=== PATIENT | male | born 1975 | race Caucasian/White ===

== ENCOUNTER → 2016-12-01 | Outpatient (CLI) | payer OTHER ==
--- NOTE | 2016-12-01 11:48 | US ---
EXAMINATION: Right upper quadrant ultrasound HISTORY: Pain COMPARISON: None TECHNIQUE: Grayscale and color Doppler images obtained of the right upper quadrant. FINDINGS: The visualized pancreas appears normal. The liver is normal in contour, echogenicity, and size without a focal hepatic mass. The gallbladder wall thickness is normal. No pericholecystic flui d or shadowing gallstones. The common bile duct measures 3 mm. The right kidney measures 10.5 cm portia e-to-pole without evidence of hydronephrosis. Sonographic Sebastian sign is negative. IMPRESSION: Unremarkable right upper quadrant ultrasound.
--- NOTE | 2016-12-01 12:38 | US ---
EXAMINATION: Scrotal duplex ultrasound HISTORY: Pain COMPARISON: None TECHNIQUE: Grayscale, color Doppler, and spectral Doppler images obtained of the scrotum. Additional images were obtained of the right lower quadrant. FINDINGS: The testicles appear normal in size, contour, and echogenicity demonstrating normal color and spectral Doppler flow. The epididymides appear normal bilaterally. No significant hydrocele or varicocele. No scrotal wall thickening. No abnormalities noted within the right lower quadrant. IMPRESSION: Unremarkable scrotal duplex ultrasound.
== END ==
LOC: MW.US 09:04
PROVIDERS: ATTEND Physician Assistant
DX: R10.9 Unspecified abdominal pain (principal)
CPT/HCPCS: 76705; 76705-26; 76870; 76870-26; 93976; 93976-26

== ENCOUNTER 2017-07-05 08:52 | Day surgery (SDC) | payer OTHER ==
[~2017-07-05 08:52] MED LIST: Lactated Ringers 1,000 ML IV SCH; Lidocaine 2% 5 ML SDV ONE; Propofol 200 MG/20 ML SDV ONE; Sodium Chloride 0.9% 10 ML Syringe FLUSH PRN; Sodium Chloride 0.9% 2.5 ML Syringe FLUSH PRN; fentaNYL 100 MCG/2 ML SDV ONE
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
--- NOTE | 2017-07-05 10:00 | PCM.OPNOTE ---
- General Post-Op/Procedure Note Date of Surgery/Procedure: 07/05/17 Operative Procedure(s): Diagnostic colonoscopy Findings: Sigmoid colon polyp Pre Op Diagnosis: Abdominal pain Post-Op Diagnosis: Sigmoid colon polyp Anesthesia Technique: MAC Primary Surgeon: Niesha Madrid Condition: Good
--- NOTE | 2017-07-05 10:12 | PCM48HPAN ---
Post Anesthesia Note - EVALUATION WITHIN 48HRS OF ANESTHETIC Vital Signs in Normal Range: Yes Patient Participated in Evaluation: Yes Respiratory Function Stable: Yes Airway Patent: Yes Cardiovascular Function Stable: Yes Hydration Status Stable: Yes Pain Control Satisfactory: Yes Nausea and Vomiting Control Satisfactory: Yes Mental Status Recovered: Yes
--- NOTE | 2017-07-05 10:12 | PCM.POSTAN ---
POST ANESTHESIA ASSESSMENT - MENTAL STATUS Mental Status: Alert, Oriented - RESPIRATORY Respiratory Status: Respiratory Rate WNL, Airway Patent, O2 Saturation Stable - CARDIOVASCULAR CV Status: Pulse Rate WNL, Blood Pressure Stable - GASTROINTESTINAL GI Status: No Symptoms - POST OP HYDRATION Hydration Status: Adequate & Stable
--- NOTE | 2017-07-05 17:11 | OR ---
SURGEON: NIESHA MADRID MD DATE OF PROCEDURE: 07/05/2017 PREOPERATIVE DIAGNOSIS: Right lower quadrant pain. POSTOPERATIVE DIAGNOSIS: Sigmoid colon polyp. PROCEDURE PERFORMED: Diagnostic colonoscopy. ENDOSCOPIST: Dr. Niesha Madrid. INSTRUMENT USED: Olympus colonoscope. ANESTHESIA: MAC. EXTENT OF EXAM: To the cecum. PREPARATION: Good. LIMITATIONS: None. INDICATION FOR EXAMINATION: The patient is a 42-year-old male, who presents to my clinic with right lower quadrant pain. This originally radiated to his testicle. He was seen by the urologist, who diagnosed him with prostatitis and placed him on Bactrim. The testicular pain improved with the antibiotics, but he continues to have vague abdominal pains. A CT of the abdomen and pelvis was performed that showed mild diverticulosis and questionable cyst within the liver. The patient continues to have these intermittent symptoms. To look for a colonic source of the pain, we discussed performing a diagnostic colonoscopy. I explained the procedure as well as expected perioperative course. We discussed the risks, including bleeding, infection, or damage to surrounding structures, including perforation. The patient verbalized understanding and wishes to proceed. PROCEDURE IN DETAIL: The patient was brought to the endoscopy suite and placed in left lateral decubitus position. A time-out was completed verifying the patient's name, age, date of , allergies, and procedure to be performed. Monitored anesthesia care was induced and continuous oxygen was provided via nasal cannula throughout the procedure. After adequate sedation was achieved, a digital rectal exam was performed. This exam was within normal limits. A well lubricated colonoscope was inserted into the rectum and advanced under direct visualization to the level of the cecum. The cecum was identified by both visual and anatomic landmarks. A photograph was taken of the cecal cap as well as with the scope retroflexed within the cecum. The scope was then straightened out and fully withdrawn while examining the color, texture, anatomy, and integrity of the mucosa from the cecum to the anal canal. The patient was found to have a 1 to 2 mm sessile sigmoid colon polyp. This was removed using a cold biopsy forceps. The remainder of the colon appeared normal. The scope was brought into the rectum and retroflexed to allow visualization of the anal canal opening. This appeared normal and a photograph was taken. The scope was then straightened out and removed from the patient. The cecum to anus time was 8 minutes. The patient was transferred to PACU in stable condition. ENDOSCOPIC DIAGNOSIS: Sigmoid colon polyp. RECOMMENDATION: Follow up in clinic in 2 weeks. May consider a HIDA scan to assess gallbladder function. HERSON TORRES /[id number]
== END 2017-07-05 10:28 | disposition home or self-care (01) ==
LOC: MW.SDS 08:52
PROVIDERS: ATTEND Surgery
DX: D12.5 Benign neoplasm of sigmoid colon (principal); K62.5 Hemorrhage of anus and rectum; K21.9 Gastro-esophageal reflux disease without esophagitis; K57.90 Diverticulosis of intestine, part unspecified, without perforation or abscess without bleeding; E66.9 Obesity, unspecified; Z68.35 Body mass index [BMI] 35.0-35.9, adult; Z88.1 Allergy status to other antibiotic agents; Z88.2 Allergy status to sulfonamides; Z87.442 Personal history of urinary calculi; Z98.890 Other specified postprocedural states; Z80.0 Family history of malignant neoplasm of digestive organs
CPT/HCPCS: 45380; J3010; J7120; 00810; 88305; J2704

== ENCOUNTER 2019-05-07 21:05 | Emergency (ER) | payer OTHER ==
[2019-05-07] MEDS ORDERED: Ketorolac 60 MG/2 ML SDV IM ONE (22:13)
[2019-05-07] MEDS ORDERED: Acetaminophen 500 MG Tab PO ONE (22:13)
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
== END 2019-05-08 00:20 | disposition home or self-care (01) ==
LOC: MW.ED 21:05
DX: S06.0X0A Concussion without loss of consciousness, initial encounter (principal); H91.92 Unspecified hearing loss, left ear; Z88.1 Allergy status to other antibiotic agents; Z88.2 Allergy status to sulfonamides; W40.8XXA Explosion of other specified explosive materials, initial encounter; Y99.0 Civilian activity done for income or pay
CPT/HCPCS: 70450; 70450-26; 71045; 71045-26; 72125; 72125-26; 99284-25; A9270-GY